=== PATIENT | female | born 1965 | race Caucasian/White ===

== ENCOUNTER 2017-06-15 23:06 | Emergency (ER) | payer OTHER ==
[~2017-06-15] VITALS: Ht 177.8 cm; Wt 127.0 kg
[2017-06-16 00:43] VITALS: BP 133/82
--- NOTE | 2017-06-16 01:03 | ED GENERAL ADULT ---
See Addendum History of Present Illness General Chief Complaint: General Adult Stated Complaint: MULTIPLE COMPLAINTS, ?UTI, R SIDE PAIN, COPD Source: patient Exam Limitations: no limitations Vital Signs & Intake/Output Vital Signs & Intake/Output Vital Signs Date Time Temp Pulse Resp B/P B/P Pulse O2 O2 Flow FiO2 Mean Ox Delivery Rate 06/16 0052 99 Room Air 06/16 0043 98.9 97 18 133/82 96 Room Air Allergies Coded Allergies: onion (Severe, TONGUE SWELLING 06/16/17) Penicillins (Intermediate, RASH 06/16/17) Reconcile Medications Ciprofloxacin HCl (Cipro) 500 MG TABLET 1 TAB PO BID UTI Triage Note: TRIAGE: PATIENT TO ER FROM HOME REPORTING ?UTI FROM MID BACK INTO R SIDE SINCE EARLIER TODAY, "DRINKING ALOT OF WATER IN LAST 6 HOURS AND PAIN IS A LITTLE BETTER." ONSET OF SX X 1 WEEK, "JUST WANTED TO SEE IF I COULD GET SOME ABX." CHEST TIGHTNESS SINCE YESTERDAY, "INHALER ISN'T WORKING. FEELS LIKE I'M BREATHING IN WATER." SPEECH CLEAR, NO ACUTE DISTRESS NOTED. Triage Nurses Notes Reviewed? yes HPI: 52 yo woman present with increased urination, burning, discomfort, with mild right flank discomfort for the past week. She notes that today she felt slightly warm, without nausea, vomiting, diarrhea, chills. She declines blood draws and imaging. Past History Travel History Traveled to [place] past 21 day No Medical History Any Pertinent Medical History? see below for history Neurological: NONE EENT: NONE Cardiovascular: NONE Respiratory: NONE Gastrointestinal: "INTESTINE ISSUE" Hepatic: NONE Renal: NONE Musculoskeletal: NONE Psychiatric: NONE Endocrine: NONE Blood Disorders: NONE Cancer(s): NONE DITCH WORKER/Reproductive: NONE Surgical History Surgical History: none Psychosocial History What is your primary language Turkmen Tobacco Use: Current Daily Use Daily Tobacco Use Amount/Type: => 5 Cigarettes daily Family History Hx Contributory? No Review of Systems Review of Systems Constitutional: Reports: no symptoms. EENTM: Reports: no symptoms. Respiratory: Reports: no symptoms. Cardiovascular: Reports: no symptoms. GI: Reports: no symptoms. Genitourinary: Reports: no symptoms. Musculoskeletal: Reports: no symptoms. Skin: Reports: no symptoms. Neurological/Psychological: Reports: no symptoms. Hematologic/Endocrine: Reports: no symptoms. Immunologic/Allergic: Reports: no symptoms. All Other Systems: Reviewed and Negative Physical Exam Physical Exam General Appearance: well developed/nourished, no apparent distress Head: atraumatic, normal appearance Eyes: Bilateral: normal appearance. Ears, Nose, Throat: normal pharynx, normal ENT inspection Neck: normal inspection, supple, full range of motion Respiratory: normal breath sounds Cardiovascular: regular rate/rhythm Gastrointestinal: normal bowel sounds, soft, non-tender Back: normal inspection, normal range of motion, minimal right cva tenderness to palpation Extremities: normal inspection, normal capillary refill, normal range of motion, no edema Skin: intact, normal color, warm/dry Core Measures ACS in differential dx? No CVA/TIA Diagnosis: No Sepsis Present: No Sepsis Focused Exam Completed? No Progress Differential Diagnoses I considered the following diagnoses in my evaluation of the patient: uti vs pyelo vs other. Plan of Care: Orders Procedure Date/time Status URINALYSIS 06/16 100 Complete EKG 06/16 0051 Active Laboratory Tests 06/16/17 0100: Urine Color YEL, Urine Clarity HAZY H, Urine pH 6.0, Ur Specific [place] 1.010, Urine Protein NEG, Urine Ketones NEG, Urine Nitrite POS H, Urine Bilirubin NEG, Urine Urobilinogen 0.2, Ur Leukocyte Esterase LARGE H, Ur Microscopic SEDIMENT EXAMINED, Urine RBC 3-5, Urine WBC 15-25 H, Ur Epithelial Cells MOD H, Urine Bacteria MOD H, Urine Hemoglobin TRACE-INTACT, Urine Glucose NEG 06/15/17 2309: Urine Color Cancelled, Urine Clarity Cancelled, Urine pH Cancelled, Ur Specific [place] Cancelled, Urine Protein Cancelled, Urine Ketones Cancelled, Urine Nitrite Cancelled, Urine Bilirubin Cancelled, Urine Urobilinogen Cancelled, Ur Leukocyte Esterase Cancelled, Ur Microscopic Cancelled, Urine Hemoglobin Cancelled, Urine Glucose Cancelled Initial ED EKG: none Departure Departure Disposition: HOME OR SELF CARE Condition: Stable Clinical Impression Primary Impression: Pyelonephritis Referrals: Patient Has No Primary Care Dr (PCP/Family) Departure Forms: Customer Survey General Discharge Information Prescriptions: Current Visit Scripts Ciprofloxacin HCl (Cipro) 1 TAB PO BID #20 TAB Comments Pt left prior to results.... RN called patient to inform that pt has uti... rx for cipro sent to patient's pharmacy. Critical Care Note Critical Care Note Critical Care Time: non-applicable
[2017-06-16] MEDS ORDERED: CIPRO500 M1 PO (01:39)
== END 2017-06-16 01:48 ==
LOC: ERH 23:06
DX: N12 Tubulo-interstitial nephritis, not specified as acute or chronic (principal); R35.0 Frequency of micturition; R30.0 Dysuria; R10.9 Unspecified abdominal pain; F17.200 Nicotine dependence, unspecified, uncomplicated
CPT/HCPCS: 81001; 93005; 93010